=== PATIENT | male | born 1985 | race Caucasian/White ===

== ENCOUNTER 2016-07-11 14:26 | Emergency (ER) | payer SELFPAY ==
--- NOTE | 2016-07-20 14:40 | ER ---
ADMIT: 07/11/2016 RM/LOC: ER [facility] MR#: [id number] [id number] [address] [place] [address] Emergency Room Report SEX: M AGE: 30 : 1985 DATE: 07/11/2016 ADDENDUM: This patient comes to the ER because he has had surgery on his right wrist, but we had to have pins put in his wrist. He says a few days ago he was attempting to do a somersault and now has increased pain. I did do not notice any swelling to the area. He rates the pain a 10/10. X-ray was negative for any fractures. He was put in a lace-up wrist splint. He was given ibuprofen 800 mg. He states he drinks a lot, and he is worried that he might be detoxing from alcohol. He was brought in by the police for medical clearance. I did give him an Ativan 1 mg p.o., and he is to be re-evaluated by the prison. He was stable for transfer by police. TYLER Mchugh / El Nowak MD / hilda JOB #: [id number] CC: El Nowak MD, Attending Physician Moncho Giles MD, Family Physician
== END 2016-07-11 16:45 | disposition home or self-care (01) ==
LOC: ER 14:26
DX: Z01.818 Encounter for other preprocedural examination (principal); M25.531 Pain in right wrist; F17.200 Nicotine dependence, unspecified, uncomplicated